=== PATIENT | male | born 1985 | race Hispanic/Latino ===

== ENCOUNTER 2017-09-11 14:32 | Emergency (ER) | payer OTHER, SELFPAY ==
[2017-09-11 15:42] LABS: #Eosinphils 0.1 thou/uL (0.0-0.7); #Lymphocytes 1.8 thou/uL (1.20-3.40); #Monocytes 0.4 thou/uL (0.11-0.59); #Neutrophils 5.3 thou/uL (1.40-6.50); %Basophils 0.4 % (0.0-1.0); %Eosinophils 1.2 % (0.0-10.0); %Lymphocytes 22.9 % (21.0-51.0); %Monocytes 5.8 % (0.0-10.0); Hematocrit 40.9 % (42.0-52.0); Red Blood Cell (RBC) Count 5.36 mill/uL (4.70-6.10); White Blood Cell (WBC) Count 7.6 thou/uL (4.8-10.8)
[2017-09-11 16:17] LABS: ALT (SGPT) 9 U/L (8-55); AST (SGOT) 18 U/L (5-34); Acetaminophen Less than 6.0 mcg/mL (10.0-30.0); Alkaline Phosphatase 99 U/L (40-150); Anion Gap 12 mmol/L (10-20); BUN (Urea Nitrogen) 14 mg/dL (8.9-20.6); Bilirubin, Total 0.2 mg/dL (0.2-1.2); Calc. Creatinine Clearance 0 mL/min (70-130); Calcium 8.5 mg/dL (7.8-10.44); Carbon Dioxide 21 mmol/L (22-29); Chloride 107 mmol/L (98-107); Estimated GFR-MDRD Greater than 90; Globulin 3.4 g/dL (2.4-3.5); Protein, Total 6.4 g/dL (6.0-8.3); Salicylate Less than 8.0 mg/dL (15.0-30.0)
[2017-09-11 16:24] LABS: Troponin I Less than 0.010 ng/mL (< 0.028)
--- NOTE | 2017-09-11 16:34 | RAD ---
SINGLE VIEW OF CHEST: Date: 09/11/17 COMPARISON: 07/24/17. HISTORY: Altered mental status. Hypoglycemia. Cocaine and meth abuse. FINDINGS: Single view of the chest shows a normal sized cardiomediastinal silhouette. There is no evidence of consolidation, mass, or pleural effusion. The bones are unremarkable. IMPRESSION: No evidence of acute cardiopulmonary disease. POS: [facility]
[2017-09-11 16:56] LABS: Bilirubin Negative (Negative); Blood, Urine Negative (Negative); Glucose, Urine (Dipstick) >=1000 mg/dL (Negative); Ketone, Urine Negative (Negative); Nitrite Negative (Negative); Protein, Urine (Dipstick) 30 mg/dL (Neg-Trace); Urobilinogen 0.2 mg/dL (0.2-1.0)
[2017-09-11 16:59] LABS: Bacteria/HPF None Seen HPF (None Seen); Hyaline Casts/LPF 4-6 HYALINE CAST LPF (0-3 Hyaline); RBC/HPF 0-3 HPF (0-3); Squamous Epithelial 0-3 HPF (0-3); WBC/HPF 0-3 HPF (0-3)
[2017-09-11 17:18] LABS: Amphetamine Not Detected (NotDetected); Methadone Not Detected (NotDetected); Methamphetamine Not Detected (NotDetected)
--- NOTE | 2017-09-11 17:52 | RAD ---
RADIOGRAPH RIGHT SHOULDER 3 VIEWS: Date: 09/11/17 HISTORY: 32-year-old male with acute right shoulder pain. FINDINGS: No fracture or dislocation. Mild DJD of glenohumeral joint and AC joint. IMPRESSION: 1. Mild osteoarthrosis of the right shoulder. 2. No fracture. POS: [facility]
== END 2017-09-11 18:13 | disposition home or self-care (01) ==
LOC: ERS 14:32
DX: E10.65 Type 1 diabetes mellitus with hyperglycemia (principal); D64.9 Anemia, unspecified; F32.9 Major depressive disorder, single episode, unspecified; F41.9 Anxiety disorder, unspecified; F17.200 Nicotine dependence, unspecified, uncomplicated; I10 Essential (primary) hypertension; Z79.899 Other long term (current) drug therapy
CPT/HCPCS: 36415; 36416; 71010; 80053; 80306; 80307; 81001; 82550; 82553; 84443; 84484; 85025; 93005

== ENCOUNTER 2017-09-23 06:32 | Emergency (ER) | payer SELFPAY ==
[2017-09-23 07:21] LABS: #Basophils 0.1 thou/uL (0.0-0.2); #Eosinphils 0.1 thou/uL (0.0-0.7); #Lymphocytes 2.5 thou/uL (1.20-3.40); #Monocytes 0.6 thou/uL (0.11-0.59); #Neutrophils 4.5 thou/uL (1.40-6.50); %Basophils 1.4 % (0.0-1.0); %Eosinophils 1.4 % (0.0-10.0); %Monocytes 7.8 % (0.0-10.0); Mean Platelet Volume 8.2 fL (7.4-10.4); Red Blood Cell (RBC) Count 5.54 mill/uL (4.70-6.10); White Blood Cell (WBC) Count 7.8 thou/uL (4.8-10.8)
[2017-09-23 07:35] LABS: Microcytosis MODERATE=15-30 cells (100X) (0-5/hpf); Target Cells SLIGHT = 2-5 cells (100X) (0-1/hpf)
[2017-09-23 07:37] LABS: ALT (SGPT) 20 U/L (8-55); AST (SGOT) 18 U/L (5-34); Alkaline Phosphatase 172 U/L (40-150); Anion Gap 18 mmol/L (10-20); BUN (Urea Nitrogen) 24 mg/dL (8.9-20.6); Bilirubin, Total 0.4 mg/dL (0.2-1.2); CK (CPK) 32 U/L (30-200); Calc. Creatinine Clearance 0 mL/min (70-130); Carbon Dioxide 27 mmol/L (22-29); Chloride 86 mmol/L (98-107); Estimated GFR-MDRD 45; Globulin 4.4 g/dL (2.4-3.5); Lipase 16 U/L (8-78); Magnesium 2.4 mg/dL (1.6-2.6); Phosphorus 3.4 mg/dL (2.3-4.7); Protein, Total 8.5 g/dL (6.0-8.3)
[2017-09-23 07:41] LABS: Troponin I Less than 0.010 ng/mL (< 0.028)
[2017-09-23 07:42] LABS: Calcium 13.2 mg/dL (7.8-10.44)
--- NOTE | 2017-09-23 08:06 | RAD ---
PORTABLE CHEST ONE VIEW: Date: 09-23-17 Time: 7:13 a.m. History: Chest pain. FINDINGS: Comparison made with exam of 09-11-17. The heart size is normal. The lungs are expanded without focal areas of consolidation, pneumothorax or pleural effusions. IMPRESSION: No radiographic evidence of acute cardiopulmonary process. POS: [facility]
[2017-09-23 08:07] LABS: Anion Gap 5 mmol/L (-14-95); T. Carbon Dioxide 27.2 mmol/L (1.0-85.0); vO2 Saturation-calc 99.9 % (0.0-100.0)
[2017-09-23] MEDS ORDERED: Insulin Regular 300 UNITS/3 ML VIAL ONE (08:08)
[2017-09-23] MEDS ORDERED: Ondansetron HCl/PF 4 MG/2 ML Vial ONE (08:17)
== END 2017-09-23 09:35 | disposition home or self-care (01) ==
LOC: ERS 06:32
DX: E10.65 Type 1 diabetes mellitus with hyperglycemia (principal); E86.0 Dehydration; M79.1 Myalgia; R11.2 Nausea with vomiting, unspecified; D64.9 Anemia, unspecified; I10 Essential (primary) hypertension; F32.9 Major depressive disorder, single episode, unspecified; F41.9 Anxiety disorder, unspecified; F17.200 Nicotine dependence, unspecified, uncomplicated; Z86.73 Personal history of transient ischemic attack (TIA), and cerebral infarction without residual deficits; W18.30XA Fall on same level, unspecified, initial encounter
CPT/HCPCS: 36416; 71010; 80053; 82010; 82330; 82553; 82803; 83690; 83735; 84100; 84484; 85025; 93005; 96361; 96372; 96374; J1815; J2405

== ENCOUNTER 2018-06-22 11:43 | Emergency (ER) | payer OTHER ==
[2018-06-22 12:30] LABS: #Basophils 0.1 thou/uL (0.0-0.2); #Eosinphils 0.1 thou/uL (0.0-0.7); #Lymphocytes 1.9 thou/uL (1.20-3.40); #Monocytes 0.4 thou/uL (0.11-0.59); #Neutrophils 2.9 thou/uL (1.40-6.50); %Basophils 1.2 % (0.0-1.0); %Eosinophils 2.5 % (0.0-10.0); %Lymphocytes 35.1 % (21.0-51.0); %Monocytes 7.5 % (0.0-10.0); %Neutrophils 53.8 % (42.0-75.0); Hemoglobin 12.5 g/dL (14.0-18.0); Mean Corpuscular HGB CONC 34.7 g/dL (32.0-36.0); Mean Corpuscular Hemoglobin 27.4 pg (27.0-31.0); Mean Platelet Volume 7.3 fL (7.4-10.4); Platelet Count 313 thou/uL (130-400); RBC Distribution Width 12.6 % (11.5-14.5); Red Blood Cell (RBC) Count 4.56 mill/uL (4.70-6.10); White Blood Cell (WBC) Count 5.4 thou/uL (4.8-10.8)
[2018-06-22 12:55] LABS: ALT (SGPT) 16 U/L (8-55); AST (SGOT) 14 U/L (5-34); Albumin 3.8 g/dL (3.5-5.0); Alkaline Phosphatase 150 U/L (40-150); Anion Gap 17 mmol/L (10-20); BUN (Urea Nitrogen) 30 mg/dL (8.9-20.6); Bilirubin, Total 0.2 mg/dL (0.2-1.2); Calc. Creatinine Clearance 0 mL/min (70-130); Calcium 9.3 mg/dL (7.8-10.44); Carbon Dioxide 26 mmol/L (22-29); Chloride 95 mmol/L (98-107); Estimated GFR-MDRD 47; Globulin 3.4 g/dL (2.4-3.5); Glucose 372 mg/dL (70-105); Lipase 55 U/L (8-78); Potassium 4.7 mmol/L (3.5-5.1); Protein, Total 7.2 g/dL (6.0-8.3); Sodium 133 mmol/L (136-145)
[2018-06-22 13:13] LABS: CKMB 1.8 ng/mL (0-6.6); Troponin I Less than 0.010 ng/mL (< 0.028)
--- NOTE | 2018-06-22 14:38 | ULT ---
ULTRASOUND GALLBLADDER RIGHT UPPER QUADRANT. HISTORY: Abdominal pain. Nausea and vomiting. COMPARISON: CT abdomen and pelvis April 10, 2018. FINDINGS: Pancreas is not well seen. The hepatic echotexture is markedly heterogeneous with areas of coarsened echotexture as well as an area of increased and decreased echotexture. The spleen is not well seen. The gallbladder is small. Gallbladder wall thickness is normal. Commo n bile duct is normal. The right kidney measures 9.7 x 5.7 x 6.3 cm. IMPRESSION: Markedly heterogeneous hepatic echotexture. This can be seen in hepatitis. A followup ultrasound is recommended in 6 weeks time. Recommend correlation with liver function tests. No definitive single mass is appreciated. POS: [facility]
--- NOTE | 2018-06-25 11:49 | EKG ---
Test Reason : Blood Pressure : / mmHG Vent. Rate : 095 BPM Atrial Rate : 095 BPM P-R Int : 124 ms QRS Dur : 080 ms QT Int : 342 ms P-R-T Axes : 043 088 052 degrees QTc Int : 429 ms Normal sinus rhythm Normal ECG Confirmed by DARWIN DE LA CRUZ DO ([id number]), commissioning editor ZORAIDA HERNANDEZ ([id number]) on 06/25/2018 11:49:00 AM Referred By: Confirmed By:DARWIN DE LA CRUZ DO
== END 2018-06-22 15:15 | disposition home or self-care (01) ==
LOC: ERS 11:43
DX: D64.9 Anemia, unspecified (principal); E10.65 Type 1 diabetes mellitus with hyperglycemia; I10 Essential (primary) hypertension; F41.9 Anxiety disorder, unspecified; F32.9 Major depressive disorder, single episode, unspecified; F17.200 Nicotine dependence, unspecified, uncomplicated
CPT/HCPCS: 36416; 76705; 80053; 82010; 82553; 83690; 84484; 85025; 93005; 96360

== ENCOUNTER 2018-07-06 18:26 | Emergency (ER) | payer OTHER ==
[2018-07-06] MEDS ORDERED: Ondansetron HCl/PF 4 MG/2 ML Vial ONE (19:07)
[2018-07-06 19:24] LABS: #Eosinphils 0.1 thou/uL (0.0-0.7); #Lymphocytes 1.1 thou/uL (1.20-3.40); #Monocytes 0.3 thou/uL (0.11-0.59); #Neutrophils 4.3 thou/uL (1.40-6.50); %Basophils 0.8 % (0.0-1.0); %Lymphocytes 19.3 % (21.0-51.0); %Monocytes 5.4 % (0.0-10.0); %Neutrophils 73.5 % (42.0-75.0); Hemoglobin 13.8 g/dL (14.0-18.0); Mean Corpuscular Hemoglobin 27.7 pg (27.0-31.0); Mean Corpuscular Volume 79.1 fL (78.0-98.0); Mean Platelet Volume 7.3 fL (7.4-10.4); Platelet Count 328 thou/uL (130-400); RBC Distribution Width 12.9 % (11.5-14.5); Red Blood Cell (RBC) Count 4.99 mill/uL (4.70-6.10); White Blood Cell (WBC) Count 5.9 thou/uL (4.8-10.8)
[2018-07-06] MEDS ORDERED: Metoclopramide HCl 10 MG/2 ML VIAL ONE (19:31)
[2018-07-06] MEDS ORDERED: cloNIDine 0.1 MG TAB ONE (19:31)
[2018-07-06 19:41] LABS: ALT (SGPT) 13 U/L (8-55); AST (SGOT) 17 U/L (5-34); Albumin 4.3 g/dL (3.5-5.0); Alkaline Phosphatase 155 U/L (40-150); Anion Gap 17 mmol/L (10-20); BUN (Urea Nitrogen) 17 mg/dL (8.9-20.6); Bilirubin, Total 0.5 mg/dL (0.2-1.2); Calc. Creatinine Clearance 0 mL/min (70-130); Calcium 10.9 mg/dL (7.8-10.44); Carbon Dioxide 29 mmol/L (22-29); Chloride 94 mmol/L (98-107); Estimated GFR-MDRD 64; Globulin 3.7 g/dL (2.4-3.5); Glucose 253 mg/dL (70-105); Potassium 3.6 mmol/L (3.5-5.1); Sodium 136 mmol/L (136-145)
== END 2018-07-06 21:00 | disposition home or self-care (01) ==
LOC: ERS 18:26
DX: E10.649 Type 1 diabetes mellitus with hypoglycemia without coma (principal); I10 Essential (primary) hypertension; Z86.73 Personal history of transient ischemic attack (TIA), and cerebral infarction without residual deficits; F41.9 Anxiety disorder, unspecified; F32.9 Major depressive disorder, single episode, unspecified; F17.210 Nicotine dependence, cigarettes, uncomplicated; Z79.4 Long term (current) use of insulin; Z79.899 Other long term (current) drug therapy
CPT/HCPCS: 36415; 36416; 80053; 85025; 93005; 96365; 96375; J2405; J2765

== ENCOUNTER 2019-04-12 15:45 | Emergency (ER) | payer OTHER | END 2019-04-12 17:58 | disposition home or self-care (01) | LOC: ERS 15:45 | DX: E10.649 Type 1 diabetes mellitus with hypoglycemia without coma (principal); D64.9 Anemia, unspecified; I10 Essential (primary) hypertension; Z86.73 Personal history of transient ischemic attack (TIA), and cerebral infarction without residual deficits; F41.9 Anxiety disorder, unspecified; F32.9 Major depressive disorder, single episode, unspecified; F17.210 Nicotine dependence, cigarettes, uncomplicated; Z79.899 Other long term (current) drug therapy | CPT/HCPCS: 36416; 99283 ==

== ENCOUNTER 2019-05-07 07:57 | Inpatient (IN) | payer OTHER ==
[2019-05-07 08:36] LABS: #Basophils 0.1 thou/uL (0.0-0.2); #Eosinphils 0.1 thou/uL (0.0-0.7); #Lymphocytes 1.4 thou/uL (1.20-3.40); #Monocytes 1.1 thou/uL (0.11-0.59); #Neutrophils 10.5 thou/uL (1.40-6.50); %Basophils 0.4 % (0.0-1.0); %Eosinophils 0.8 % (0.0-10.0); %Lymphocytes 10.9 % (21.0-51.0); %Monocytes 8.4 % (0.0-10.0); %Neutrophils 79.5 % (42.0-75.0); Hemoglobin 9.4 g/dL (14.0-18.0); Mean Corpuscular HGB CONC 33.2 g/dL (32.0-36.0); Mean Corpuscular Hemoglobin 26.4 pg (27.0-31.0); Mean Corpuscular Volume 79.7 fL (78.0-98.0); Mean Platelet Volume 7.1 fL (7.4-10.4); Platelet Count 382 thou/uL (130-400); RBC Distribution Width 13.6 % (11.5-14.5); Red Blood Cell (RBC) Count 3.55 mill/uL (4.70-6.10); White Blood Cell (WBC) Count 13.2 thou/uL (4.8-10.8)
[2019-05-07 08:56] LABS: ALT (SGPT) 16 U/L (8-55); AST (SGOT) 17 U/L (5-34); Albumin 3.3 g/dL (3.5-5.0); Alkaline Phosphatase 213 U/L (40-150); Anion Gap 13 mmol/L (10-20); BUN (Urea Nitrogen) 23 mg/dL (8.9-20.6); Bilirubin, Total 0.2 mg/dL (0.2-1.2); Calc. Creatinine Clearance 0 mL/min (70-130); Calcium 9.1 mg/dL (7.8-10.44); Carbon Dioxide 24 mmol/L (22-29); Chloride 100 mmol/L (98-107); Estimated GFR-MDRD 46; Globulin 3.4 g/dL (2.4-3.5); Glucose 158 mg/dL (70-105); Potassium 4.6 mmol/L (3.5-5.1); Protein, Total 6.7 g/dL (6.0-8.3); Sodium 132 mmol/L (136-145)
--- NOTE | 2019-05-07 09:31 | CT ---
CT Brain WO Con History: Trauma. Stroke. Comparison: CT brain April 10, 2018 Findings: No acute hemorrhage or infarct. No midline shift or mass effect. Ventricular size and extra -axial CSF spaces are normal. Paranasal sinuses and mastoids are clear. Globes are intact. Impression: No acute intracranial abnormality.
[2019-05-07] MEDS ORDERED: Fentanyl 100 MCG/2 ML VIAL ONE (09:34)
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
[2019-05-07] MEDS ORDERED: ISOVUE-370 76%-LOCM 1 ML ONE (09:43)
[2019-05-07 09:55] LABS: Acetaminophen Less than 6.0 mcg/mL (10.0-30.0); Alcohol Less than 10 mg/dL (Less than 10); Salicylate Less than 8.0 mg/dL (15.0-30.0)
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
--- NOTE | 2019-05-07 09:56 | RAD ---
XR Hand Rt 3 View STANDARD History: Trauma. Pain. Comparison: None. Findings: No acute fracture or malalignment. Impression: No acute fracture or malalignment.
[2019-05-07] MEDS ORDERED: Ketorolac Tromethamine 30 MG/ML VIAL ONE (11:30)
[2019-05-07] MEDS ORDERED: Lidocaine 1% (PF) 30 ML VIAL ONE (11:51)
[2019-05-07 12:58] LABS: Synovial Fluid, Glucose 107 mg/dL (Not Available); Synovial Fluid, Protein Less than 1.0 g/dL (Not Available); Synovial Fluid, Uric Acid 3.9 mg/dL (Not Available)
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
[2019-05-07 14:31] LABS: BF Color Red; BF WBC/Nonhematics Ct. - Manua 250 /cumm; Body Fluid Source Synovial Fluid; Clarity Cloudy/Turbid (Clear); RBC Count-Automated 62000 /cumm; Tube # 1
[2019-05-07 14:34] LABS: BF Segmented Neutrophils 91 %; Cell Count Non Hematic 7 %; Lymphocytes 2 %
[2019-05-07] MEDS ORDERED: Acetaminophen 325 MG TAB PO PRN (15:08)
[2019-05-07] MEDS ORDERED: Ondansetron PF 4 MG/2 ML Vial IVP PRN (15:08)
[2019-05-07] MEDS ORDERED: Ondansetron ODT 4 MG TAB SL PRN (15:08)
[2019-05-07] MEDS ORDERED: Dextrose 5% in Water 1,000 ML IV PRN (15:20)
[2019-05-07] MEDS ORDERED: Nicotine 14 MG PATCH TD PRN (15:20)
[2019-05-07] MEDS ORDERED: Vancomycin HCl 1.25 GM in Sodium Chloride 0.9% 250 ML 250 ML IVPB SCH (15:20)
[2019-05-07 15:35] VITALS: BMI 25.1
[2019-05-07 16:41] LABS: Hemoglobin A1c 12.9 % (4.0-6.0)
[2019-05-07] MEDS: HumaLOG 300 UNITS/3 ML VIAL SC PRN ×2 (17:28→21:00)
[2019-05-07] MEDS: Insulin Glargine 30 UNITS in Pre-Filled Syringe 1 EACH SC SCH (20:58)
[2019-05-07] MEDS ORDERED: traMADol HCl 50 MG TAB PO SCH (21:30)
[2019-05-08] MEDS: Vancomycin HCl 1 GM in Premix Bag 1 BAG IVPB SCH ×2 (01:24→14:20)
[2019-05-08] MEDS: traMADol HCl 50 MG TAB PO PRN ×3 (04:31→23:22)
[2019-05-08 06:10] LABS: Anion Gap 12 mmol/L (10-20); BUN (Urea Nitrogen) 18 mg/dL (8.9-20.6); Calc. Creatinine Clearance 74 mL/min (70-130); Calcium 8.4 mg/dL (7.8-10.44); Carbon Dioxide 20 mmol/L (22-29); Chloride 102 mmol/L (98-107); Estimated GFR-MDRD 58; Glucose 94 mg/dL (70-105); Potassium 4.6 mmol/L (3.5-5.1); Sodium 129 mmol/L (136-145)
[2019-05-08 06:25] LABS: #Basophils 0.1 thou/uL (0.0-0.2); #Eosinphils 0.3 thou/uL (0.0-0.7); #Lymphocytes 1.7 thou/uL (1.20-3.40); #Monocytes 1.3 thou/uL (0.11-0.59); #Neutrophils 8.8 thou/uL (1.40-6.50); %Basophils 0.4 % (0.0-1.0); %Eosinophils 2.2 % (0.0-10.0); %Lymphocytes 13.8 % (21.0-51.0); %Monocytes 10.6 % (0.0-10.0); %Neutrophils 72.9 % (42.0-75.0); Hemoglobin 8.4 g/dL (14.0-18.0); Mean Corpuscular HGB CONC 32.8 g/dL (32.0-36.0); Mean Corpuscular Hemoglobin 26.9 pg (27.0-31.0); Mean Platelet Volume 7.6 fL (7.4-10.4); Platelet Count 330 thou/uL (130-400); RBC Distribution Width 13.5 % (11.5-14.5); Red Blood Cell (RBC) Count 3.12 mill/uL (4.70-6.10); White Blood Cell (WBC) Count 12.1 thou/uL (4.8-10.8)
--- NOTE | 2019-05-08 06:55 | PDOC.FM ---
- Subjective Subjective: Pain in right knee. Was better yesterday, worsened overnight. Can't tell if having fevers. Unable to bend all the way. - Objective MAR Reviewed: Yes Vital Signs & Weight: Vital Signs (12 hours) Temp Pulse Resp BP Pulse Ox 05/08/19 03:00 98.9 F 109 H 20 170/90 H 96 05/07/19 23:45 99 F 116 H 18 141/89 H 97 05/07/19 20:00 98.3 F 115 H 18 172/99 H 96 Weight Weight 70.562 kg I&O: 05/06/19 05/07/19 05/08/19 06:59 06:59 06:59 Intake Total 400 Balance 400 Result Diagrams: 05/08/19 05:26 05/08/19 05:26 Phys Exam - Physical Examination distress from right knee pain HEENT: PERRLA, moist MMs Respiratory: no wheezing, clear to auscultation bilateral Cardiovascular: RRR, no significant murmur knee red, bends to 90 degrees, TTP,warm Neurological: non-focal, moves all 4 limbs Skin: cap refill <2 seconds Dx/Plan (1) Cellulitis of knee Code(s): L03.119 - CELLULITIS OF UNSPECIFIED PART OF LIMB Status: Acute (2) Type 1 diabetes Status: Acute - Plan Plan: 34yo male with pmh of Type 1 DM presenting with Right knee Cellulitis with abscess s/p drainage on 05/07/19 Sepsis 2/2 R knee Cellulitis with abscess s/p drainage - Tachycardic with leukocytosis in ER - Synovial fluid studies pending, added gram stain and culture this AM - pt afebrile, WBC elevated but trending down - Elevate dESR/CRP - continue vancomycin, pending cx - will discuss further imaging to r/o septic arthritis DMI - A1c 12.9, poorly controlled - Continue home Insulin with Lantus in place of Levemir 30U BID, titrate as needed - consult CM in assistance of this - Mod SSI, hypoglycemic protocol, CC diet GERD - Continue home meds Epilepsy - Continue home meds Tobacco Abuse - Encourage Cessation HTN, uncontrolled -pending home meds Hx of TBI DVT ppx: Lovenox Code Status: FULL PCP: [facility] (Dr Solo Renteria) Addendum - Attending - Attending Attestation Date/Time: 05/08/19 [id number] I personally evaluated the patient and discussed the management with Dr. Calderon. I agree with the History, Examination, Assessment and Plan documented above with any addition or exceptions noted below. Pt still with leukocytosis and mild tachycardia. The patient's knee is red, warm and exquisitely tender to palpation. Pt unable to fully flex the knee. Continue antibiotics. Will consult ortho as pt may need I/D.
[2019-05-08] MEDS: Ferrous Sulfate 325 MG TAB PO SCH (08:26)
[2019-05-08] MEDS: Acetaminophen 325 MG TAB PO PRN (08:26)
[2019-05-08] MEDS: Thiamine 100 MG TAB PO SCH (08:26)
[2019-05-08] MEDS: hydrALAZINE 20 MG/ML VIAL SLOW IVP PRN ×2 (08:33→19:55)
[2019-05-08] MEDS: Phenytoin 50 MG Chewable Tablet PO SCH ×3 (09:00→20:55)
[2019-05-08] MEDS ORDERED: Insulin Glargine 30 UNITS in Pre-Filled Syringe 1 EACH SC SCH (09:00)
[2019-05-08] MEDS ORDERED: Enoxaparin Sodium 40 MG/0.4 ML SYRINGE SC SCH (09:00)
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
[2019-05-08] MEDS ORDERED: Lactated Ringer's 500 ML IV SCH (15:30)
--- NOTE | 2019-05-08 16:48 | MRI ---
MRI Lower Ext Jt Rt WO Con History: Knee effusion Comparison: Knee radiograph prior day Findings: The menisci appear to be intact. The ACL, PCL, MCL and LCL are intact. There is edema of the vastus medias and vastus lateralis muscles. There is a partial tear of the vast us medialis. Small area of fat necrosis superficial to the fascia the vastus medialis. There are muscle strains of the medial and lateral head gastrocnemius. No osteochondral defect. No osseous contusion. Impression: 1. No acute internal derangement. 2. Partial tear of the vastus medialis myotendinous junction anteriorly axial image 32. 3. Focal area of fat necrosis and fat contusion within the subcutaneous fat just superficial to the v astus medialis. 4. Muscle strains of the vastus lateralis as well as the gastrocnemius muscles. 5. Small joint effusion without osseous contusion nor osteochondral defect. 6. Circumferential soft tissue swelling.
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
[2019-05-08] MEDS: HumaLOG 300 UNITS/3 ML VIAL SC PRN (18:37)
[2019-05-08] MEDS: Lactated Ringer's 1,000 ML IV SCH (19:55)
[2019-05-08] MEDS: Insulin Glargine 30 UNITS in Pre-Filled Syringe 1 EACH SC SCH ×2 (20:52→22:34)
[2019-05-08] MEDS: Labetalol HCl 100 MG/20 ML VIAL SLOW IVP PRN (23:40)
[2019-05-08 23:48] LABS: #Eosinphils 0.1 thou/uL (0.0-0.7); #Lymphocytes 1.1 thou/uL (1.20-3.40); #Monocytes 0.9 thou/uL (0.11-0.59); #Neutrophils 9.5 thou/uL (1.40-6.50); %Basophils 0.2 % (0.0-1.0); %Lymphocytes 9.1 % (21.0-51.0); %Monocytes 7.5 % (0.0-10.0); %Neutrophils 82.4 % (42.0-75.0); Mean Corpuscular HGB CONC 33.7 g/dL (32.0-36.0); Mean Corpuscular Hemoglobin 26.8 pg (27.0-31.0); Mean Corpuscular Volume 79.7 fL (78.0-98.0); Mean Platelet Volume 6.9 fL (7.4-10.4); Platelet Count 395 thou/uL (130-400); RBC Distribution Width 13.2 % (11.5-14.5); Red Blood Cell (RBC) Count 3.36 mill/uL (4.70-6.10); White Blood Cell (WBC) Count 11.6 thou/uL (4.8-10.8)
[2019-05-09] MEDS: Lactated Ringer's 1,000 ML IV SCH (00:20)
[2019-05-09] MEDS: Vancomycin HCl 1 GM in Premix Bag 1 BAG IVPB SCH ×2 (02:20→15:11)
[2019-05-09] MEDS: Dextrose 50% Abboject 50 ML SYRINGE SLOW IVP PRN ×3 (04:39→09:13)
[2019-05-09] MEDS ORDERED: Dextrose 5 %-0.45 % NaCl 1,000 ML IV SCH (05:00)
[2019-05-09 06:02] LABS: #Basophils 0.1 thou/uL (0.0-0.2); #Eosinphils 0.1 thou/uL (0.0-0.7); #Lymphocytes 1.4 thou/uL (1.20-3.40); #Neutrophils 7.5 thou/uL (1.40-6.50); %Basophils 0.5 % (0.0-1.0); %Eosinophils 1.4 % (0.0-10.0); %Lymphocytes 13.7 % (21.0-51.0); %Monocytes 9.6 % (0.0-10.0); %Neutrophils 74.8 % (42.0-75.0); Hemoglobin 8.2 g/dL (14.0-18.0); Mean Corpuscular HGB CONC 33.2 g/dL (32.0-36.0); Mean Corpuscular Hemoglobin 26.7 pg (27.0-31.0); Mean Corpuscular Volume 80.4 fL (78.0-98.0); Platelet Count 361 thou/uL (130-400); RBC Distribution Width 13.3 % (11.5-14.5); Red Blood Cell (RBC) Count 3.08 mill/uL (4.70-6.10); White Blood Cell (WBC) Count 10.1 thou/uL (4.8-10.8)
[2019-05-09 06:20] LABS: Anion Gap 11 mmol/L (10-20); BUN (Urea Nitrogen) 15 mg/dL (8.9-20.6); Calc. Creatinine Clearance 79 mL/min (70-130); Calcium 8.5 mg/dL (7.8-10.44); Carbon Dioxide 24 mmol/L (22-29); Chloride 103 mmol/L (98-107); Estimated GFR-MDRD 63; Potassium 3.8 mmol/L (3.5-5.1)
[2019-05-09 06:26] LABS: Glucose 40 mg/dL (70-105); Sodium 134 mmol/L (136-145)
[2019-05-09] MEDS ORDERED: Insulin Glargine 10 UNITS in Pre-Filled Syringe 1 EACH SC SCH (06:34)
--- NOTE | 2019-05-09 06:37 | PDOC.FM ---
- Subjective Subjective: Hypoglycemic episodes yesterday, pt was lethargic at time. Recent accucheck 200s. patient resting comfortably in room. 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 Alert, responsiv this AM - Objective MAR Reviewed: Yes Vital Signs & Weight: Vital Signs (12 hours) Temp Pulse Resp BP BP BP BP 05/09/19 04:25 98.6 F 84 16 144/89 H 05/09/19 02:30 98.7 F 109 H 20 142/85 H 05/09/19 00:15 98.1 F 107 H 20 159/93 H 05/08/19 23:44 98.6 F 110 H 15 181/105 H 05/08/19 23:40 121 H 181/105 H 05/08/19 21:00 119 H 176/111 H 05/08/19 20:00 05/08/19 19:55 112 H 193/106 H 05/08/19 19:38 98.6 F 112 H 18 196/106 H Pulse Ox 05/09/19 04:25 96 05/09/19 02:30 97 05/09/19 00:15 98 05/08/19 23:44 96 05/08/19 23:40 05/08/19 21:00 05/08/19 20:00 98 05/08/19 19:55 05/08/19 19:38 97 Weight Weight 70.562 kg I&O: 05/07/19 05/08/19 05/09/19 06:59 06:59 06:59 Intake Total 400 1440 Balance 400 1440 Result Diagrams: 05/09/19 05:19 05/09/19 05:19 Phys Exam - Physical Examination Constitutional: NAD HEENT: PERRLA, moist MMs Respiratory: no wheezing, clear to auscultation bilateral Cardiovascular: RRR, no significant murmur erythematous, warm, TTP, limited flexing Neurological: non-focal limited ROM with right knee due to pain Psychiatric: A&O x 3 Skin: cap refill <2 seconds Dx/Plan (1) Cellulitis of knee Code(s): L03.119 - CELLULITIS OF UNSPECIFIED PART OF LIMB Status: Acute (2) Type 1 diabetes Status: Acute - Plan Plan: 34yo male with pmh of Type 1 DM presenting with Right knee Cellulitis with abscess s/p drainage on 05/07/19 Sepsis 2/2 R knee Cellulitis with abscess s/p drainage - pt afebrile, WBC resolved - Elevate ESR/CRP -MRI showing with extracapsular abscess, likely traumatic infusion -continue empiric vanc, blood cx NGTD and synovial cx NGTD -washout with ortho today Hypoglycemia -likely from being NPO and givne insulin -resolved after hypoglycemia procol -will dec AM Lantus to 10 units while NPO -cover with aggressive sliding scale and q6hr accuchecks DMI - A1c 12.9, poorly controlled - home regumin levemir 30 units BID - will switch to lantus-consult CM in assistance of this - Mod SSI, hypoglycemic protocol, CC diet cHTN -was formerly in lisnopril -elevated BPs upto 180/105, pain could be contributing factors -if BPs still elevated after procedure will consider restarting on chronic antihypertensive -IV antihypertensives to cover for now GERD - Continue home meds Epilepsy - Continue home meds Tobacco Abuse - Encourage Cessation HTN, uncontrolled -PRN antihypertensives Hx of TBI DVT ppx: Lovenox Code Status: FULL PCP: [facility] (Dr Solo Renteria) Addendum - Attending - Attending Attestation Date/Time: 05/09/19 8484 I personally evaluated the patient and discussed the management with Dr. Calderon. I agree with the History, Examination, Assessment and Plan documented above with any addition or exceptions noted below. Pt was started on D5 this morning due to hypoglycemia from being NPO. Going for washout of the knee today. Erythema is improved.
[2019-05-09] MEDS: Thiamine 100 MG TAB PO SCH (09:00)
[2019-05-09] MEDS: Ferrous Sulfate 325 MG TAB PO SCH (09:00)
[2019-05-09] MEDS: Phenytoin 50 MG Chewable Tablet PO SCH ×3 (09:00→20:49)
[2019-05-09] MEDS ORDERED: HumaLOG 300 UNITS/3 ML VIAL SC PRN (09:04)
[2019-05-09] MEDS: Labetalol HCl 100 MG/20 ML VIAL SLOW IVP PRN (12:08)
[2019-05-09] MEDS ORDERED: Dextrose 10% in Water 1,000 ML IV SCH (12:30)
[2019-05-09] MEDS ORDERED: PROPOFOL 200 MG/20 ML VIAL ONE (13:25)
[2019-05-09] MEDS ORDERED: Esmolol 100 MG/10 ML VIAL ONE (13:25)
[2019-05-09] MEDS ORDERED: Ondansetron PF 4 MG/2 ML Vial ONE (13:25)
[2019-05-09 13:57] LABS: Vancomycin, Trough 32.8 ug/mL
--- NOTE | 2019-05-09 14:20 | PQF ---
DATE: 05-09-19 ATTN: DR. LUCAS LAW Please exercise your independent, professional judgment in responding to the clarification form. Clinical indicators are provided on the bottom of this form for your review Please check appropriate box(s): [ ] Acute Renal Failure (ARF) / Acute Kidney Injury (TONJA) [ x] Acute on Chronic Renal Failure please specify Stage of CKD2(see below) [ ] CKD without ARF/TONJA please specify Stage of CKD [ ] Other diagnosis [ ] Unable to determine In addition, please specify: Present on Admission (POA): [ ] Yes [ x ] No tonja not POA but CKD2 was [ ] Unable to determine National Kidney Foundation Guidelines for CKD Staging Stage I Kidney damage with normal or increased GFR GFR > 90 Stage II Kidney damage with mildly decreased GFR GFR 60- 89 Stage III Kidney damage with moderately decreased GFR GFR 30-59 Stage IV Kidney damage with severely decreased GFR GFR 16-29 Stage V Kidney failure GFR<15 ESRD End Stage Renal Disease On dialysis Acute Renal Failure/Acute Kidney Failure defined as: Increases in SCr by (>) 0.3 mg/dl within 48 hours OR- Increases in SCr by (>) 1.5 times baseline, known or presumed to have occurred within the prior 7 days OR- Urine volume < 0.5 ml/kg/hour for 6 hours (KDIGO supplement 2012 for RIFLE/KASSIE criteria) For continuity of documentation, please document condition throughout progress notes and discharge summary. Thank You. CLINICAL INDICATORS - SIGNS / SYMPTOMS / LABS: GFR: 05-07-19: 46 05-08-19: 58 05-09-19: 63 CREATININE: 05-07-19: 1.71 05-08-19: 1.40 05-09-19: 1.31 BUN: 05-07-19: 23 05-08-19: 18 05-09-19: 15 ER: HX OF ACUTE KIDNEY FAILURE RISK FACTORS: ER: HX OF ACUTE KIDNEY FAILURE TREATMENTS: ER: NS 1L IVF (This form is maintained as a part of the permanent medical record) 2014 [employer] All Rights Reserved BEAU [email or web address] Office: [phone] EVI
[2019-05-09] MEDS ORDERED: Midazolam HCl 2 mg/2 ml Vial ONE (14:51)
[2019-05-09] MEDS ORDERED: Fentanyl 100 MCG/2 ML VIAL ONE (14:51)
[2019-05-09] MEDS ORDERED: Neomycin-Polymyxin 1 ML AMP ONE (15:17)
[2019-05-09] MEDS ORDERED: Promethazine HCl 25 MG/ML VIAL IM PRN (16:33)
[2019-05-09] MEDS ORDERED: Ondansetron HCl/PF 4 MG/2 ML Vial IVP PRN (16:33)
[2019-05-09] MEDS ORDERED: Promethazine HCl 25 MG/ML VIAL SLOW IVP PRN (16:33)
[2019-05-09] MEDS: hydrALAZINE 20 MG/ML VIAL SLOW IVP PRN (18:46)
[2019-05-09] MEDS: traMADol HCl 50 MG TAB PO PRN (18:50)
[2019-05-09] MEDS: Insulin Glargine 15 UNITS in Pre-Filled Syringe 1 EACH SC SCH (20:50)
--- NOTE | 2019-05-09 21:21 | OP ---
DATE OF PROCEDURE: 05/09/2019 PREOPERATIVE DIAGNOSIS: Right anterior medial subcutaneous knee abscess. POSTOPERATIVE DIAGNOSIS: Right anterior medial subcutaneous knee abscess. PROCEDURE PERFORMED: Incision and drainage of right knee subcutaneous abscess. ANESTHESIA: LMA. TOURNIQUET TIME: 8 minutes at 300 mmHg. IMPLANTS: None. DRAINS: None. SPECIMEN: Swab sent for Gram stain, culture, and sensitivity. COMPLICATIONS: None. INDICATIONS: The patient is a 34-year-old diabetic gentleman who sustained a direct blow injury to the right anterior knee. There was no evidence of fracture. However, he has gone on to develop a red swollen area at the medial aspect of the anterior knee. He has had an aspiration performed of the knee that just showed red blood cells without a significant white count and this current abscess is not felt to be communicating with the knee joint proper. An MRI does show a loculated fluid collection that is extra-articular and as such the patient now taken to the operating room. DESCRIPTION OF PROCEDURE: The patient was brought to the operating room and a time-out performed followed by induction of LMA anesthesia. Next, a sterile prep and drape was performed of the right lower extremity. A small 2-cm incision was made centered over the raised slightly red area just to the medial aspect of the patella. After skin was sharply incised, white purulent material was encountered. This was aspirated and swabs sent to the lab for Gram stain, culture, and sensitivity. Next, the abscess cavity was palpated digitally. There was found to be no extension into the knee or extension into the prepatellar bursa. The wall of the abscess cavity was then curetted to remove any nonviable tissue. Once this was performed, 3 L of normal saline using Pulsavac was irrigated through the abscess cavity. The abscess cavity was then packed with a small length of Kerlix gauze and Greg wrap dressing applied to the knee. It should be noted the leg was elevated and then tourniquet inflated prior to the 1st skin incision and then the tourniquet was let down at the completion of dressing. There were no complications. The patient tolerated the procedure well. Job ID: [id number]
[2019-05-10] MEDS: traMADol HCl 50 MG TAB PO PRN ×2 (05:34→11:16)
[2019-05-10 06:22] LABS: #Eosinphils 0.2 thou/uL (0.0-0.7); #Lymphocytes 1.3 thou/uL (1.20-3.40); #Monocytes 0.7 thou/uL (0.11-0.59); #Neutrophils 6.5 thou/uL (1.40-6.50); %Basophils 0.6 % (0.0-1.0); %Eosinophils 2.4 % (0.0-10.0); %Lymphocytes 14.5 % (21.0-51.0); %Monocytes 7.8 % (0.0-10.0); %Neutrophils 74.8 % (42.0-75.0); Hemoglobin 8.4 g/dL (14.0-18.0); Mean Corpuscular HGB CONC 32.7 g/dL (32.0-36.0); Mean Corpuscular Hemoglobin 26.3 pg (27.0-31.0); Mean Corpuscular Volume 80.3 fL (78.0-98.0); Mean Platelet Volume 7.1 fL (7.4-10.4); Platelet Count 417 thou/uL (130-400); RBC Distribution Width 13.5 % (11.5-14.5); White Blood Cell (WBC) Count 8.7 thou/uL (4.8-10.8)
--- NOTE | 2019-05-10 06:47 | PDOC.FM ---
- Subjective Subjective: Still reporting pain in knee. Feels okay. No fevers, chills. Trying to mobilize at bedside - Objective Vital Signs & Weight: Vital Signs (12 hours) Temp Pulse Resp BP BP Pulse Ox 05/10/19 03:51 98.6 F 114 H 18 148/95 H 93 L 05/10/19 00:05 117 H 05/09/19 23:57 99.2 F 133 H 20 133/78 96 05/09/19 23:05 117 H 163/101 H 96 05/09/19 22:33 162/85 H 05/09/19 22:30 116 H 162/85 H 05/09/19 21:59 120 H 162/104 H 05/09/19 21:29 97.8 F 150/94 H 05/09/19 21:02 112 H 158/90 H 96 05/09/19 20:00 99 05/09/19 19:13 97.6 F 109 H 20 152/90 H 99 05/09/19 18:46 92 05/09/19 18:40 163/106 H Weight Weight 70.562 kg I&O: 05/08/19 05/09/19 05/10/19 06:59 06:59 06:59 Intake Total 400 1440 Balance 400 1440 Result Diagrams: 05/10/19 05:29 05/10/19 05:29 Phys Exam - Physical Examination Constitutional: NAD HEENT: moist MMs mild distress from pain in knee, bandaged left eye cataract Neck: full ROM Cardiovascular: no significant murmur, no rub tachycardic Musculoskeletal: pulses present left knee bandaged so unable to bend Neurological: non-focal Skin: cap refill <2 seconds Dx/Plan (1) Cellulitis of knee Code(s): L03.119 - CELLULITIS OF UNSPECIFIED PART OF LIMB Status: Acute (2) Type 1 diabetes Status: Acute (3) Sinus tachycardia Code(s): R00.0 - TACHYCARDIA, UNSPECIFIED Status: Acute (4) Hypertension Code(s): I10 - ESSENTIAL (PRIMARY) HYPERTENSION Status: Chronic Qualifiers: (5) Iron deficiency anemia Code(s): D50.9 - IRON DEFICIENCY ANEMIA, UNSPECIFIED Status: Chronic (6) Non compliance w medication regimen Code(s): Z91.14 - PATIENT'S OTHER NONCOMPLIANCE WITH MEDICATION REGIMEN Status : Chronic (7) Seizure disorder Code(s): G40.909 - EPILEPSY, UNSP, NOT INTRACTABLE, WITHOUT STATUS EPILEPTICUS Status: Chronic - Plan Plan: 34yo male with pmh of Type 1 DM presenting with Right knee Cellulitis with abscess s/p drainage on 05/07/19 Sepsis 2/2 R knee Cellulitis with abscess s/p drainage, POD1 - pt afebrile, WBC resolved - Elevated ESR/CRP -MRI showing with extracapsular abscess, likely traumatic infusion -continue empiric vanc, blood cx NGTD and synovial cx NGTD, abscess cx pending DMI - A1c 12.9, poorly controlled - home regumin levemir 30 units BID, will continue home regimen after talking with Dr. Varner - Mod SSI, hypoglycemic protocol, CC diet, accuchecks q6hr cHTN -was formerly on lisnopril -elevated BPs upto 160/100s, pain could be contributing factors, requiring IV antihypertensives overnight -will restart lisinopril Normocytic anemia -will obtain iron studies GERD - Continue home meds Epilepsy - Continue home meds Tobacco Abuse - Encourage Cessation HTN, uncontrolled -PRN antihypertensives Hx of TBI Hypoglycemia, resolved -likely from being NPO and givne insulin -resolved after hypoglycemia procol -will dec AM Lantus to 10 units while NPO -cover with aggressive sliding scale and q6hr accuchecks DVT ppx: Lovenox Code Status: FULL PCP: [facility] (Dr Solo Renteria) Addendum - Attending - Attending Attestation Date/Time: 05/10/19 4951 I personally evaluated the patient and discussed the management with Dr. Calderon. I agree with the History, Examination, Assessment and Plan documented above with any addition or exceptions noted below. Patient is still tachycardic and was npo yesterday for surgery. Will give 1 liter fluid bolus. Continue antibiotics. Cultures pending. Increasing tramadol.
[2019-05-10 06:49] LABS: Anion Gap 11 mmol/L (10-20); BUN (Urea Nitrogen) 15 mg/dL (8.9-20.6); Calc. Creatinine Clearance 72 mL/min (70-130); Calcium 8.6 mg/dL (7.8-10.44); Carbon Dioxide 27 mmol/L (22-29); Chloride 104 mmol/L (98-107); Estimated GFR-MDRD 56; Glucose 71 mg/dL (70-105); Potassium 4.5 mmol/L (3.5-5.1); Sodium 137 mmol/L (136-145)
[2019-05-10] MEDS: Ferrous Sulfate 325 MG TAB PO SCH (08:14)
[2019-05-10] MEDS: Phenytoin 50 MG Chewable Tablet PO SCH ×3 (08:15→20:59)
[2019-05-10] MEDS: Thiamine 100 MG TAB PO SCH (08:15)
[2019-05-10] MEDS: Acetaminophen 325 MG TAB PO PRN (08:18)
[2019-05-10] MEDS ORDERED: Lisinopril 10 MG TAB PO SCH ×2 (09:00→09:30)
[2019-05-10] MEDS ORDERED: traMADol HCl 50 MG TAB PO PRN (09:13)
[2019-05-10 10:24] LABS: Reticulocyte Count 0.9 % (0.5-1.5)
[2019-05-10 10:55] LABS: Iron Binding Capacity, Total 211 mcg/dL (261-462)
[2019-05-10 10:56] LABS: Iron 10 ug/dL (65-175)
[2019-05-10] MEDS ORDERED: Lactated Ringer's 1,000 ML IV SCH (11:45)
[2019-05-10 13:45] LABS: Vancomycin, Random 11.3 ug/mL (See Comment)
[2019-05-10] MEDS: Vancomycin HCl 500 MG in Sodium Chloride 0.9% 100 ML IVPB SCH (15:52)
[2019-05-10] MEDS: Vancomycin HCl 1 GM in Premix Bag 1 BAG IVPB SCH ×2 (19:27→19:28)
[2019-05-10] MEDS: Insulin Glargine 15 UNITS in Pre-Filled Syringe 1 EACH SC SCH (20:59)
[2019-05-11] MEDS: Vancomycin HCl 500 MG in Sodium Chloride 0.9% 100 ML IVPB SCH ×2 (02:13→14:16)
[2019-05-11] MEDS ORDERED: Lactated Ringer's 500 ML IV SCH (02:45)
[2019-05-11 05:48] LABS: #Eosinphils 0.2 thou/uL (0.0-0.7); #Lymphocytes 1.7 thou/uL (1.20-3.40); #Monocytes 0.7 thou/uL (0.11-0.59); #Neutrophils 5.2 thou/uL (1.40-6.50); %Basophils 0.4 % (0.0-1.0); %Eosinophils 2.5 % (0.0-10.0); %Lymphocytes 21.4 % (21.0-51.0); %Monocytes 8.5 % (0.0-10.0); %Neutrophils 67.2 % (42.0-75.0); Hemoglobin 8.6 g/dL (14.0-18.0); Mean Corpuscular HGB CONC 31.1 g/dL (32.0-36.0); Mean Corpuscular Hemoglobin 25.2 pg (27.0-31.0); Platelet Count 499 thou/uL (130-400); RBC Distribution Width 13.5 % (11.5-14.5); Red Blood Cell (RBC) Count 3.43 mill/uL (4.70-6.10); White Blood Cell (WBC) Count 7.8 thou/uL (4.8-10.8)
[2019-05-11 06:02] LABS: Anion Gap 11 mmol/L (10-20); BUN (Urea Nitrogen) 24 mg/dL (8.9-20.6); Calc. Creatinine Clearance 53 mL/min (70-130); Calcium 9.2 mg/dL (7.8-10.44); Carbon Dioxide 25 mmol/L (22-29); Chloride 103 mmol/L (98-107); Estimated GFR-MDRD 40; Glucose 118 mg/dL (70-105); Sodium 134 mmol/L (136-145)
[2019-05-11] MEDS: Lisinopril 10 MG TAB PO SCH (08:13)
[2019-05-11] MEDS: Phenytoin 50 MG Chewable Tablet PO SCH ×3 (08:13→20:48)
[2019-05-11] MEDS: Ferrous Sulfate 325 MG TAB PO SCH (08:13)
[2019-05-11] MEDS: Lactated Ringer's 1,000 ML IV SCH ×3 (08:17→16:54)
--- NOTE | 2019-05-11 08:35 | PDOC.FM ---
- Subjective Subjective: NAEO. Refusing IV access. Hypoglycemic episode in 40s this morning, give PO sugar. Worked with PT yesteray, denies any pain or complaints. - Objective Vital Signs & Weight: Vital Signs (12 hours) Temp Pulse Resp BP BP Pulse Ox 05/11/19 07:24 97.7 F 117 H 20 139/94 H 97 05/11/19 04:00 98.0 F 116 H 20 147/84 H 96 05/11/19 00:00 98.8 F 117 H 20 146/90 H 94 L 05/10/19 20:00 95 05/10/19 19:31 97.9 F 109 H 20 158/103 H 95 Weight Admit Weight 70.562 kg Weight 70.562 kg I&O: 05/10/19 05/11/19 05/12/19 06:59 06:59 06:59 Intake Total 1300 Balance 1300 Result Diagrams: 05/11/19 05:14 05/11/19 05:14 Phys Exam - Physical Examination Constitutional: NAD HEENT: PERRLA, moist MMs left catract Respiratory: no wheezing, clear to auscultation bilateral Cardiovascular: no significant murmur tachycardic Gastrointestinal: soft, non-tender Musculoskeletal: no edema Neurological: non-focal, moves all 4 limbs Psychiatric: normal affect, A&O x 3 Skin: cap refill <2 seconds Dx/Plan (1) Cellulitis of knee Code(s): L03.119 - CELLULITIS OF UNSPECIFIED PART OF LIMB Status: Acute (2) Type 1 diabetes Status: Acute (3) Sinus tachycardia Code(s): R00.0 - TACHYCARDIA, UNSPECIFIED Status: Acute (4) Hypertension Code(s): I10 - ESSENTIAL (PRIMARY) HYPERTENSION Status: Chronic Qualifiers: (5) Iron deficiency anemia Code(s): D50.9 - IRON DEFICIENCY ANEMIA, UNSPECIFIED Status: Chronic (6) Non compliance w medication regimen Code(s): Z91.14 - PATIENT'S OTHER NONCOMPLIANCE WITH MEDICATION REGIMEN Status : Chronic (7) Seizure disorder Code(s): G40.909 - EPILEPSY, UNSP, NOT INTRACTABLE, WITHOUT STATUS EPILEPTICUS Status: Chronic - Plan Plan: 34yo male with pmh of Type 1 DM presenting with Right knee Cellulitis with abscess s/p drainage on 05/07/19 Sepsis 2/2 R knee Cellulitis with abscess s/p drainage, POD1 - pt afebrile, WBC resolved - Elevated ESR/CRP -MRI showing with extracapsular abscess, likely traumatic infusion -continue empiric vanc, blood cx NGTD and synovial cx NGTD, abscess cx pending TONJA on CKD -prerenal vs. 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 2) Hypoglycemia in uncontrolled/labile DM1-dec lantus to 12 units, accuchecks q6hr. OP Endcrinology to attain bump. 3) sinus tachycardia- stable, start metoprolol, repeat EKG, 1L bolus and tele transfer. 4) Dispo: CM working on home health. Addendum - Attending - Attending Attestation Date/Time: 05/11/19 1210 I personally evaluated the patient and discussed the management with Dr. Calderon. I agree with the History, Examination, Assessment and Plan documented above with any addition or exceptions noted below. Patient is threatening to leave AMA. We have talked to his father who states he has legal custody of his son and is on the way to the hospital. Pt is still tachycardic. He has been refusing IV fluids. He has an TONJA and fluids are indicated. We are trying to transfer to tele and get an ekg if pt is amenable. We also want urine studies.
[2019-05-11] MEDS: Thiamine 100 MG TAB PO SCH (08:59)
[2019-05-11] MEDS ORDERED: Amlodipine 10 MG TAB PO SCH (09:15)
--- NOTE | 2019-05-11 11:42 | PDOC.EVN ---
Event Note - Event Note Event Note: Pt refusing IV fluids even after explaining all of the repercussions of his conditions we are worried about- decreasing kidney function, right knee infection, low sugars, high heart rate. Patient still desires to leave AMA even expressing understanding that he could become very sick if he leaves AMA. Discussed this with Dad who says he now has legal guardianship. He said he will come up to the hospital to talk to son. Asked him to bring paperwork to confirm status.
[2019-05-11] MEDS: Insulin Regular 300 UNITS/3 ML VIAL SC PRN (12:17)
[2019-05-11] MEDS ORDERED: Insulin Glargine 12 UNITS in Pre-Filled Syringe 1 EACH SC SCH (21:00)
[2019-05-12] MEDS: Lactated Ringer's 1,000 ML IV SCH (00:07)
--- NOTE | 2019-05-12 00:49 | PDOC.EVN ---
Event Note - Event Note Event Note: Residents paged to come evaluate patient for AMS and/or "acting off." On evaluation patient was initally noted to have slurred speech and slightly drowsy on and off which improved over the course of conversation. Emotionally labile & tearful on & off on questioning. Answered questions appropriately when asked. Neuro exam intact w/ no focal deficits noted. Oriented x4. last accucheck elevated at 380. Will obtain a stat BMP and beta hydroxyurate level as well as urine ketones and a UDS pending patient is willing to provide a urine sample to r/o DKA and drug intoxication. Nurses report he has refused samples and catheterization in the past.
[2019-05-12 01:21] LABS: Vancomycin, Trough 14.7 ug/mL
[2019-05-12 01:23] LABS: Anion Gap 9 mmol/L (10-20); BUN (Urea Nitrogen) 19 mg/dL (8.9-20.6); Calc. Creatinine Clearance 68 mL/min (70-130); Calcium 8.4 mg/dL (7.8-10.44); Carbon Dioxide 24 mmol/L (22-29); Chloride 103 mmol/L (98-107); Estimated GFR-MDRD 52; Glucose 344 mg/dL (70-105); Potassium 5.6 mmol/L (3.5-5.1); Sodium 130 mmol/L (136-145)
[2019-05-12 01:37] LABS: Bilirubin Negative (Negative); Blood, Urine Trace (Negative); Clarity CLEAR (Clear); Glucose, Urine (Dipstick) >=1000 mg/dL (Negative); Leukocyte Negative (Negative); Nitrite Negative (Negative); Protein, Urine (Dipstick) 100 mg/dL (Neg-Trace); Specific Gravity, Urine 1.015 (1.002-1.036); Urobilinogen 0.2 mg/dL (0.2-1.0); pH, Urine 6.5 (5.0-9.0)
[2019-05-12 01:40] LABS: Bacteria/HPF None Seen HPF (None Seen); Hyaline Casts/LPF 0-3 HYALINE CAST LPF (0-3 Hyaline); Squamous Epithelial None Seen HPF (0-3); WBC/HPF None Seen HPF (0-3)
[2019-05-12 01:56] LABS: Amphetamine Detected (NotDetected); Barbiturates Screen Detected (NotDetected); Cocaine Metabolite Screen Not Detected (NotDetected); Medtox Reader # READER 1; Methamphetamine Detected (NotDetected); Phencyclidine (PCP) Not Detected (NotDetected); THC/Cannabinoid Screen Not Detected (NotDetected)
[2019-05-12 01:57] LABS: Benzodiazepine Screen Not Detected (NotDetected); Medtox Control Line Valid? VALID (VALID); Methadone Not Detected (NotDetected); Opiate Screen Not Detected (NotDetected); Oxycodone Screen Not Detected (NotDetected); Tricyclic Screen Not Detected (NotDetected)
[2019-05-12] MEDS: Vancomycin HCl 500 MG in Sodium Chloride 0.9% 100 ML IVPB SCH ×2 (02:32→14:08)
[2019-05-12] MEDS ORDERED: Insulin Glargine 14 UNITS in Pre-Filled Syringe 1 EACH SC SCH (07:00)
[2019-05-12] MEDS: Insulin Regular 300 UNITS/3 ML VIAL SC PRN ×2 (07:09→21:28)
--- NOTE | 2019-05-12 07:14 | PDOC.FM ---
- Subjective Subjective: Sleeping this morning, A&O x3 however did not want to talk to me. Not lethargic , no labored breathing. - Objective Vital Signs & Weight: Vital Signs (12 hours) Temp Pulse Resp BP Pulse Ox 05/12/19 05:59 97.7 F 94 18 167/102 H 95 05/11/19 19:21 98.4 F 110 H 16 132/88 92 L Weight Admit Weight 70.562 kg Weight 70.562 kg I&O: 05/11/19 05/12/19 05/13/19 06:59 06:59 06:59 Intake Total 1300 3110 Output Total 250 Balance 1300 2860 Result Diagrams: 05/12/19 10:12 05/12/19 10:12 Phys Exam - Physical Examination Constitutional: NAD HEENT: PERRLA, moist MMs left cataract Respiratory: no wheezing, clear to auscultation bilateral Cardiovascular: no significant murmur tachycardic Gastrointestinal: soft Musculoskeletal: pulses present right knee bandaged Neurological: non-focal, moves all 4 limbs Deviation from normal: labile affect Dx/Plan (1) Cellulitis of knee Code(s): L03.119 - CELLULITIS OF UNSPECIFIED PART OF LIMB Status: Acute (2) Type 1 diabetes Status: Acute (3) Sinus tachycardia Code(s): R00.0 - TACHYCARDIA, UNSPECIFIED Status: Acute (4) Hypertension Code(s): I10 - ESSENTIAL (PRIMARY) HYPERTENSION Status: Chronic Qualifiers: (5) Iron deficiency anemia Code(s): D50.9 - IRON DEFICIENCY ANEMIA, UNSPECIFIED Status: Chronic (6) Non compliance w medication regimen Code(s): Z91.14 - PATIENT'S OTHER NONCOMPLIANCE WITH MEDICATION REGIMEN Status : Chronic (7) Seizure disorder Code(s): G40.909 - EPILEPSY, UNSP, NOT INTRACTABLE, WITHOUT STATUS EPILEPTICUS Status: Chronic - Plan Plan: 34yo male with pmh of Type 1 DM presenting with Right knee Cellulitis with abscess s/p drainage on 05/07/19 Sepsis 2/2 R knee Cellulitis with abscess s/p drainage -MRI showing with extracapsular abscess, likely traumatic infusion -s/p drain & washout -continue empiric vanc, knee fluids cx w/ group a strep, pending S/S TONJA on CKD -likely prerenal, microscopy negative casts -improved with bolus -likely prerenal component, continue mIVF, recheck daily DMI - A1c 12.9, poorly controlled, labile glucoses -working on outpt f/u with endocrinology -POC 300s, w/u for DKA negative- will inc lantus to 14 U cHTN -elevated BPs -restart lisnopril -will add metorpolol -IV antihypertensives Tachyardia, sinus -controlled rate this AM -UDS positive for stimulants, could still be in system -also possible dehydration component with glucosuria -continue beta cathryn Drug abuse -UDS positive for methamphetamines & amphetamines Normocytic anemia -will obtain iron studies GERD - Continue home meds Epilepsy - Continue home meds Tobacco Abuse - Encourage Cessation 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 2) Hyperglycmeia in uncontrolled DM1 -inc lantus 14U, accuchecks q6hr. OP Endcrinology to attain pump. 3) sinus tachycardia- resolved w/ metoprolol and fluids. likely drug abuse component could also be dehydrated in light of hyperglycemia, glucosuria. continue to monitor can descalate metoprolol if needed. 4) TONJA on CKD- Improved with fluids , start mIVF 4) Dispo: CM working on home health. Addendum - Attending - Attending Attestation Date/Time: 05/12/19 5433 I personally evaluated the patient and discussed the management with Dr. Calderon. I agree with the History, Examination, Assessment and Plan documented above with any addition or exceptions noted below. The patient did not want to speak with us this morning and wanted to sleep. His tonja is improving. UDS is positive for amphetamines and methamphetamines. His tachycardia may be due to withdrawal. His blood sugars remains very labile. Will increase his basal insulin to help with the current hyperglycemia.
[2019-05-12] MEDS: Sodium Chloride 0.9% 1,000 ML IV SCH ×2 (08:23→17:41)
[2019-05-12] MEDS: Phenytoin 50 MG Chewable Tablet PO SCH ×3 (08:24→21:19)
[2019-05-12] MEDS: Ferrous Sulfate 325 MG TAB PO SCH (08:24)
[2019-05-12] MEDS: Thiamine 100 MG TAB PO SCH (08:24)
[2019-05-12] MEDS: Amlodipine 5 MG TAB PO SCH (08:25)
[2019-05-12] MEDS: Lisinopril 10 MG TAB PO SCH (08:25)
[2019-05-12] MEDS ORDERED: Insulin Glargine 13 UNITS in Pre-Filled Syringe 1 EACH SC SCH (09:09)
[2019-05-12 10:22] LABS: #Basophils 0.1 thou/uL (0.0-0.2); #Eosinphils 0.2 thou/uL (0.0-0.7); #Lymphocytes 1.4 thou/uL (1.20-3.40); #Monocytes 0.6 thou/uL (0.11-0.59); #Neutrophils 4.4 thou/uL (1.40-6.50); %Basophils 0.8 % (0.0-1.0); %Eosinophils 2.9 % (0.0-10.0); %Lymphocytes 21.2 % (21.0-51.0); %Monocytes 8.4 % (0.0-10.0); %Neutrophils 66.7 % (42.0-75.0); Hemoglobin 8.5 g/dL (14.0-18.0); Mean Corpuscular HGB CONC 33.4 g/dL (32.0-36.0); Mean Corpuscular Volume 80.9 fL (78.0-98.0); Mean Platelet Volume 6.3 fL (7.4-10.4); Platelet Count 509 thou/uL (130-400); RBC Distribution Width 13.5 % (11.5-14.5); Red Blood Cell (RBC) Count 3.16 mill/uL (4.70-6.10); White Blood Cell (WBC) Count 6.6 thou/uL (4.8-10.8)
[2019-05-12 10:43] LABS: Anion Gap 9 mmol/L (10-20); BUN (Urea Nitrogen) 17 mg/dL (8.9-20.6); Calc. Creatinine Clearance 84 mL/min (70-130); Calcium 8.9 mg/dL (7.8-10.44); Carbon Dioxide 26 mmol/L (22-29); Chloride 108 mmol/L (98-107); Estimated GFR-MDRD 67; Glucose 83 mg/dL (70-105); Potassium 4.7 mmol/L (3.5-5.1); Sodium 138 mmol/L (136-145)
[2019-05-12] MEDS: traMADol HCl 50 MG TAB PO PRN (15:49)
[2019-05-12] MEDS: HumaLOG 300 UNITS/3 ML VIAL SC PRN (17:39)
--- NOTE | 2019-05-12 21:09 | EKG ---
Test Reason : Blood Pressure : / mmHG Vent. Rate : 114 BPM Atrial Rate : 114 BPM P-R Int : 120 ms QRS Dur : 080 ms QT Int : 308 ms P-R-T Axes : 041 054 036 degrees QTc Int : 424 ms Sinus tachycardia Otherwise normal ECG When compared with ECG of 07-MAY-2019 08:32, (Unconfirmed) No significant change was found Confirmed by Stephen ARTEAGA ([id number]) on 05/12/2019 9:09:01 PM Referred By: Confirmed By:Stephen ARTEAGA
--- NOTE | 2019-05-12 21:25 | EKG ---
Test Reason : Blood Pressure : / mmHG Vent. Rate : 119 BPM Atrial Rate : 119 BPM P-R Int : 128 ms QRS Dur : 078 ms QT Int : 294 ms P-R-T Axes : 040 028 023 degrees QTc Int : 413 ms Sinus tachycardia Otherwise normal ECG Confirmed by Stephen ARTEAGA ([id number]) on 05/12/2019 9:24:39 PM Referred By: NEDRA Confirmed By:Stephen ARTEAGA
--- NOTE | 2019-05-12 21:35 | EKG ---
Test Reason : Blood Pressure : / mmHG Vent. Rate : 123 BPM Atrial Rate : 123 BPM P-R Int : 118 ms QRS Dur : 080 ms QT Int : 300 ms P-R-T Axes : 055 066 059 degrees QTc Int : 429 ms Sinus tachycardia Otherwise normal ECG Confirmed by Stephen ARTEAGA ([id number]) on 05/12/2019 9:35:19 PM Referred By: Confirmed By:Stephen ARTEAGA
[2019-05-13] MEDS: Vancomycin HCl 500 MG in Sodium Chloride 0.9% 100 ML IVPB SCH (01:37)
[2019-05-13] MEDS: Sodium Chloride 0.9% 1,000 ML IV SCH ×2 (03:11→08:58)
[2019-05-13] MEDS: Acetaminophen 325 MG TAB PO PRN (03:28)
[2019-05-13 05:30] LABS: #Basophils 0.1 thou/uL (0.0-0.2); #Eosinphils 0.2 thou/uL (0.0-0.7); #Lymphocytes 1.5 thou/uL (1.20-3.40); #Monocytes 1.1 thou/uL (0.11-0.59); #Neutrophils 11.8 thou/uL (1.40-6.50); %Basophils 0.4 % (0.0-1.0); %Eosinophils 1.5 % (0.0-10.0); %Lymphocytes 10.2 % (21.0-51.0); %Monocytes 7.5 % (0.0-10.0); %Neutrophils 80.3 % (42.0-75.0); Mean Corpuscular HGB CONC 32.2 g/dL (32.0-36.0); Mean Corpuscular Hemoglobin 26.5 pg (27.0-31.0); Mean Corpuscular Volume 82.1 fL (78.0-98.0); Mean Platelet Volume 6.8 fL (7.4-10.4); Platelet Count 518 thou/uL (130-400); RBC Distribution Width 13.8 % (11.5-14.5); Red Blood Cell (RBC) Count 3.03 mill/uL (4.70-6.10); White Blood Cell (WBC) Count 14.7 thou/uL (4.8-10.8)
[2019-05-13 05:48] LABS: Anion Gap 9 mmol/L (10-20); BUN (Urea Nitrogen) 20 mg/dL (8.9-20.6); Calc. Creatinine Clearance 83 mL/min (70-130); Calcium 8.4 mg/dL (7.8-10.44); Carbon Dioxide 25 mmol/L (22-29); Chloride 107 mmol/L (98-107); Estimated GFR-MDRD 66; Glucose 251 mg/dL (70-105); Potassium 5.2 mmol/L (3.5-5.1); Sodium 136 mmol/L (136-145)
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
[2019-05-13] MEDS: HumaLOG 300 UNITS/3 ML VIAL SC PRN (06:57)
[2019-05-13] MEDS: Ferrous Sulfate 325 MG TAB PO SCH (08:41)
[2019-05-13] MEDS: Lisinopril 20 MG TAB PO SCH (08:42)
[2019-05-13] MEDS: Thiamine 100 MG TAB PO SCH (08:42)
[2019-05-13] MEDS: Phenytoin 50 MG Chewable Tablet PO SCH ×3 (08:42→19:45)
[2019-05-13] MEDS: Amlodipine 5 MG TAB PO SCH (08:42)
[2019-05-13] MEDS: AMOXicillin 250 MG CAP PO SCH ×2 (08:56→19:46)
[2019-05-13] MEDS: traMADol HCl 50 MG TAB PO PRN (15:15)
[2019-05-13] MEDS: Insulin Regular 300 UNITS/3 ML VIAL SC PRN ×2 (16:40→19:49)
[2019-05-13] MEDS ORDERED: Insulin Glargine 18 UNITS in Pre-Filled Syringe 1 EACH SC SCH (21:00)
[2019-05-14] MEDS: Insulin Regular 300 UNITS/3 ML VIAL SC PRN ×2 (05:11→13:21)
[2019-05-14 05:53] LABS: #Eosinphils 0.1 thou/uL (0.0-0.7); #Lymphocytes 1.6 thou/uL (1.20-3.40); #Monocytes 1.2 thou/uL (0.11-0.59); #Neutrophils 10.4 thou/uL (1.40-6.50); %Basophils 0.2 % (0.0-1.0); %Eosinophils 1.1 % (0.0-10.0); %Lymphocytes 12.2 % (21.0-51.0); %Monocytes 8.8 % (0.0-10.0); %Neutrophils 77.8 % (42.0-75.0); Hemoglobin 9.3 g/dL (14.0-18.0); Mean Corpuscular HGB CONC 35.5 g/dL (32.0-36.0); Mean Corpuscular Hemoglobin 28.7 pg (27.0-31.0); Mean Corpuscular Volume 80.8 fL (78.0-98.0); Mean Platelet Volume 6.7 fL (7.4-10.4); Platelet Count 508 thou/uL (130-400); RBC Distribution Width 13.8 % (11.5-14.5); Red Blood Cell (RBC) Count 3.22 mill/uL (4.70-6.10); White Blood Cell (WBC) Count 13.4 thou/uL (4.8-10.8)
[2019-05-14] MEDS: Sodium Chloride 0.9% 1,000 ML IV SCH ×3 (06:08→14:35)
[2019-05-14 06:19] LABS: Anion Gap 12 mmol/L (10-20); BUN (Urea Nitrogen) 17 mg/dL (8.9-20.6); Calc. Creatinine Clearance 71 mL/min (70-130); Calcium 8.3 mg/dL (7.8-10.44); Carbon Dioxide 24 mmol/L (22-29); Chloride 102 mmol/L (98-107); Estimated GFR-MDRD 55; Glucose 435 mg/dL (70-105); Potassium 4.9 mmol/L (3.5-5.1); Sodium 133 mmol/L (136-145)
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
[2019-05-14] MEDS: Thiamine 100 MG TAB PO SCH (08:09)
[2019-05-14] MEDS: Ferrous Sulfate 325 MG TAB PO SCH (08:09)
[2019-05-14] MEDS: Phenytoin 50 MG Chewable Tablet PO SCH ×3 (08:09→19:58)
[2019-05-14] MEDS: AMOXicillin 250 MG CAP PO SCH ×2 (08:09→19:58)
[2019-05-14] MEDS: Lisinopril 20 MG TAB PO SCH (08:10)
[2019-05-14] MEDS: Amlodipine 5 MG TAB PO SCH (08:10)
[2019-05-14] MEDS: Insulin Glargine 23 UNITS in Pre-Filled Syringe 1 EACH SC SCH (19:59)
[2019-05-15] MEDS: Sodium Chloride 0.9% 1,000 ML IV SCH ×3 (00:18→18:01)
[2019-05-15 05:19] LABS: Anion Gap 14 mmol/L (10-20); BUN (Urea Nitrogen) 15 mg/dL (8.9-20.6); Calc. Creatinine Clearance 74 mL/min (70-130); Calcium 8.3 mg/dL (7.8-10.44); Carbon Dioxide 25 mmol/L (22-29); Chloride 99 mmol/L (98-107); Estimated GFR-MDRD 58; Glucose 436 mg/dL (70-105); Potassium 4.8 mmol/L (3.5-5.1); Sodium 133 mmol/L (136-145)
[2019-05-15 05:44] LABS: Band 1 % (5-11); Eosinophils 2 % (0-10); Hemoglobin 8.1 g/dL (14.0-18.0); Lymphocytes 24 % (21-51); MDiff Complete? YES; Mean Corpuscular HGB CONC 31.6 g/dL (32.0-36.0); Mean Corpuscular Hemoglobin 25.8 pg (27.0-31.0); Mean Corpuscular Volume 81.9 fL (78.0-98.0); Mean Platelet Volume 6.7 fL (7.4-10.4); Metamyelocyte 1 % (0-0); Monocytes 6 % (0-10); Neutrophil 66 % (42-75); Platelet Count 499 thou/uL (130-400); Platelet Morphology Comment Appears Increased; RBC Distribution Width 13.9 % (11.5-14.5); Red Blood Cell (RBC) Count 3.14 mill/uL (4.70-6.10); White Blood Cell (WBC) Count 10.3 thou/uL (4.8-10.8)
[2019-05-15] MEDS: Insulin Regular 300 UNITS/3 ML VIAL SC PRN ×4 (06:17→20:37)
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
[2019-05-15] MEDS: Amlodipine 5 MG TAB PO SCH (09:25)
[2019-05-15] MEDS: Ferrous Sulfate 325 MG TAB PO SCH (09:25)
[2019-05-15] MEDS: Thiamine 100 MG TAB PO SCH (09:26)
[2019-05-15] MEDS: Phenytoin 50 MG Chewable Tablet PO SCH ×3 (09:26→20:36)
[2019-05-15] MEDS: Lisinopril 20 MG TAB PO SCH (09:26)
[2019-05-15] MEDS: AMOXicillin 250 MG CAP PO SCH ×2 (09:27→20:36)
[2019-05-15] MEDS: Insulin Glargine 23 UNITS in Pre-Filled Syringe 1 EACH SC SCH (20:36)
[2019-05-16] MEDS: Insulin Regular 300 UNITS/3 ML VIAL SC PRN ×2 (05:43→12:13)
[2019-05-16 05:51] LABS: #Eosinphils 0.2 thou/uL (0.0-0.7); #Lymphocytes 1.6 thou/uL (1.20-3.40); #Monocytes 0.8 thou/uL (0.11-0.59); #Neutrophils 6.8 thou/uL (1.40-6.50); %Basophils 0.4 % (0.0-1.0); %Lymphocytes 16.6 % (21.0-51.0); %Monocytes 8.9 % (0.0-10.0); %Neutrophils 72.1 % (42.0-75.0); Hemoglobin 8.9 g/dL (14.0-18.0); Mean Corpuscular HGB CONC 32.1 g/dL (32.0-36.0); Mean Platelet Volume 6.5 fL (7.4-10.4); Platelet Count 534 thou/uL (130-400); RBC Distribution Width 14.1 % (11.5-14.5); White Blood Cell (WBC) Count 9.5 thou/uL (4.8-10.8)
[2019-05-16 06:09] LABS: Anion Gap 12 mmol/L (10-20); BUN (Urea Nitrogen) 20 mg/dL (8.9-20.6); Calc. Creatinine Clearance 81 mL/min (70-130); Calcium 8.6 mg/dL (7.8-10.44); Carbon Dioxide 26 mmol/L (22-29); Chloride 100 mmol/L (98-107); Estimated GFR-MDRD 64; Glucose 155 mg/dL (70-105); Potassium 4.2 mmol/L (3.5-5.1); Sodium 134 mmol/L (136-145)
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
[2019-05-16] MEDS ORDERED: Insulin Glargine 28 UNITS in Pre-Filled Syringe 1 EACH SC SCH (06:57)
[2019-05-16] MEDS: AMOXicillin 250 MG CAP PO SCH (08:50)
[2019-05-16] MEDS: Sodium Chloride 0.9% 1,000 ML IV SCH ×2 (08:50)
[2019-05-16] MEDS: Phenytoin 50 MG Chewable Tablet PO SCH (08:51)
[2019-05-16] MEDS: Amlodipine 5 MG TAB PO SCH (08:51)
[2019-05-16] MEDS: Ferrous Sulfate 325 MG TAB PO SCH (08:51)
[2019-05-16] MEDS: Thiamine 100 MG TAB PO SCH (08:52)
[2019-05-16] MEDS ORDERED: Lisinopril 20 MG TAB PO SCH (09:00)
[2019-05-16 11:07] VITALS: BP 159/92; TEMP 98
[2019-05-16] MEDS: Acetaminophen 325 MG TAB PO PRN (12:16)
== END 2019-05-16 12:27 | disposition home or self-care (01) | DRG 854 ==
LOC: ERS 07:57 → T4-A 14:01
PROVIDERS: ADMIT Family Medicine; ATTEND Family Medicine
PROC: 0J9N0ZZ Drainage of Right Lower Leg Subcutaneous Tissue and Fascia, Open Approach (ICD-10-PCS; principal; 2019-05-09)
DX: A41.9 Sepsis, unspecified organism (principal); L02.415 Cutaneous abscess of right lower limb; L03.115 Cellulitis of right lower limb; N17.9 Acute kidney failure, unspecified; F10.10 Alcohol abuse, uncomplicated; E10.649 Type 1 diabetes mellitus with hypoglycemia without coma; N18.2 Chronic kidney disease, stage 2 (mild); I12.9 Hypertensive chronic kidney disease with stage 1 through stage 4 chronic kidney disease, or unspecified chronic kidney disease; E10.22 Type 1 diabetes mellitus with diabetic chronic kidney disease; D50.9 Iron deficiency anemia, unspecified; K21.9 Gastro-esophageal reflux disease without esophagitis; F15.10 Other stimulant abuse, uncomplicated; E10.65 Type 1 diabetes mellitus with hyperglycemia; G40.909 Epilepsy, unspecified, not intractable, without status epilepticus; Z91.81 History of falling; Z87.820 Personal history of traumatic brain injury; Z87.891 Personal history of nicotine dependence; Z79.4 Long term (current) use of insulin; Z91.14 Patient's other noncompliance with medication regimen
CPT/HCPCS: 20610; 36415; 36416; 70450; 71260; 72125; 74177; 80048; 80053; 80202; 80306; 80307; 82010; 82088; 82533; 82607; 82728; 82746; 82945; 83036; 83540; 83550; 83605; 84145; 84157; 84484; 84560; 85025; 85046; 85060; 85652; 86140; 87040; 87070; 87076; 87077; 87186; 87205; 89051; 89060; 93005; 93010; 93306; 96361; 96365; 96375; J0360; J1610; J1650; J1815; J1825; J1885; J2001; J2250; J2405; J2704; J3010; J3370; J3490; Q9966